=== PATIENT | female | born 2000 | race Caucasian/White ===

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

== ENCOUNTER 2021-08-21 17:24 | Outpatient (CLI) | payer OTHER ==
[~2021-08-21 17:24] MED LIST changes: +DOCUSATE SODIU100 MG PO; +IBUPROFEN800 MG PO; +IRON325 M1 PO; +PRENATAL VITAM1 EAC3 PO
== END 2021-08-21 20:50 | disposition home or self-care (01) ==
LOC: GENOP 17:24
DX: O99.891 Other specified diseases and conditions complicating pregnancy (principal); N89.8 Other specified noninflammatory disorders of vagina; O47.03 False labor before 37 completed weeks of gestation, third trimester; Z3A.35 35 weeks gestation of pregnancy
CPT/HCPCS: 81001; 84112; G0463

== ENCOUNTER 2021-09-18 05:15 | Inpatient (IN) | payer OTHER ==
[~2021-09-18] VITALS: Ht 160 cm; Wt 79.4 kg
[2021-09-18 05:51] LABS: HEMOGLOBIN 9.8 gm/dl (12.3-15.3); RED BLOOD COUNT 4.04 M/UL (4.00-5.10); WHITE BLOOD COUNT 12.3 K/UL (4.5-11.0)
[2021-09-18] MEDS ORDERED: IBUPROFEN600 MG PO (12:28)
[2021-09-18] MEDS ORDERED: DOCUSATE SODIU250 MG PO (12:28)
[2021-09-19 07:13] LABS: HEMOGLOBIN 10.1 gm/dl (12.3-15.3)
== END 2021-09-20 12:35 | disposition home or self-care (01) | DRG 807 ==
LOC: OB 05:15
PROVIDERS: Obstetrics & Gynecology; ADMIT Obstetrics & Gynecology
PROC: 10E0XZZ Delivery of Products of Conception, External Approach (ICD-10-PCS; principal; 2021-09-18)
PROC: 10907ZC Drainage of Amniotic Fluid, Therapeutic from Products of Conception, Via Natural or Artificial Opening (ICD-10-PCS; 2021-09-18)
PROC: 4A1HXCZ Monitoring of Products of Conception, Cardiac Rate, External Approach (ICD-10-PCS; 2021-09-18)
PROC: 0HQ9XZZ Repair Perineum Skin, External Approach (ICD-10-PCS; 2021-09-18)
PROC: 10H073Z Insertion of Monitoring Electrode into Products of Conception, Via Natural or Artificial Opening (ICD-10-PCS; 2021-09-18)
PROC: 10H07YZ Insertion of Other Device into Products of Conception, Via Natural or Artificial Opening (ICD-10-PCS; 2021-09-18)
PROC: 3E0234Z Introduction of Serum, Toxoid and Vaccine into Muscle, Percutaneous Approach (ICD-10-PCS; 2021-09-18)
DX: O70.0 First degree perineal laceration during delivery (principal); Z37.0 Single live birth; Z3A.39 39 weeks gestation of pregnancy; Z20.822 Contact with and (suspected) exposure to COVID-19; Z87.01 Personal history of pneumonia (recurrent); Z82.5 Family history of asthma and other chronic lower respiratory diseases; Z82.49 Family history of ischemic heart disease and other diseases of the circulatory system; Z83.3 Family history of diabetes mellitus; Z23 Encounter for immunization
CPT/HCPCS: 81001; 85014; 85018; 85025; 90715; J2210; J2590